=== PATIENT | female | born 1940 | race Caucasian/White ===

== ENCOUNTER → 2021-06-01 10:12 | Outpatient (CLI) | payer MEDICARE, SELFPAY ==
[2021-06-01 12:41] LABS: Influenza Control Positive
[2021-06-01 20:55] LABS: SARS-CoV-2 RNA PCR Negative
== END ==
PROVIDERS: PCP Family Medicine; Visit Provider Physician Assistant
DX: R05.9 Cough, unspecified (principal); Z20.822 Contact with and (suspected) exposure to COVID-19
CPT/HCPCS: 87804; C9803; U0003; U0005

== ENCOUNTER 2021-06-05 11:23 | Outpatient (CLI) | payer MEDICARE, SELFPAY ==
--- NOTE | ~2021-06-05 | XR_ITS ---
EXAMINATION: XR chest 2V DATE: 06/05/2021 11:45 INDICATION: Cough, unspecified. TECHNIQUE: Frontal and lateral views of the chest were obtained. COMPARISON: None. FINDINGS: There is mild scarring at the lung apices. There is mild atelectasis in the lower lobes. No pleural effusion or pneumothorax. The heart size is normal. IMPRESSION: 1. Mild scarring at the lung apices and mild atelectasis in the lower lobes. Reviewed, dictated and finalized at location B. BUSTER
== END 2021-06-05 11:24 | disposition home or self-care (01) ==
LOC: ANHIMG 11:28
PROVIDERS: PCP Family Medicine; Visit Provider Physician Assistant
DX: R05.9 Cough, unspecified (principal); R91.8 Other nonspecific abnormal finding of lung field
CPT/HCPCS: 71046

== ENCOUNTER → 2022-11-05 11:48 | Outpatient (CLI) | payer MEDICARE, SELFPAY ==
--- NOTE | ~2022-11-05 | XR_ITS ---
EXAMINATION: XR ankle LT min 3V DATE: 11/05/2022 12:26 INDICATION: Left ankle pain TECHNIQUE: Anteroposterior, lateral, mortise, and additional oblique view of the ankle were obtained. COMPARISON: None. FINDINGS: There is an acute, traumatic, closed, nondisplaced fracture of the lateral malleolus just b elow the level of the tibial plafond. No additional fracture is identified. There is soft tissue swel ling of the ankle and foot. Posterior and plantar calcaneal enthesophytes are noted. A linear radiopa que foreign body of unclear location projecting between the first and second metatarsals. IMPRESSION: 1. Acute, nondisplaced transverse fracture of the lateral malleolus below the level of the tibial gracia fond. Reviewed, dictated and finalized at location A. IMPRESSION: 1. Acute, nondisplaced transverse fracture of the lateral malleolus below the l evel of the tibial plafond.
== END ==
PROVIDERS: PCP Family Medicine; Visit Provider Family Medicine
DX: S82.65XA Nondisplaced fracture of lateral malleolus of left fibula, initial encounter for closed fracture (principal); X58.XXXA Exposure to other specified factors, initial encounter
CPT/HCPCS: 73610